=== PATIENT | female | born 1990 | race Caucasian/White ===

== ENCOUNTER 2020-11-25 20:04 | Emergency (ER) | payer BC ==
[2020-11-25] MEDS: Ondansetron 4 MG Tab.DIS PO ONE (20:30)
[2020-11-25 20:45] LABS: CHLORIDE,CL 105 mmol/L (98-107); SODIUM,NA 142 mmol/L (136-145)
[2020-11-25 21:13] VITALS: BP 129/83; PULSE 86
--- NOTE | 2020-11-25 22:25 | EDM.PDOC ---
ED HPI GENERAL MEDICAL PROBLEM - General Chief Complaint: General Stated Complaint: DIZZINESS Time Seen by Provider: 11/25/20 20:30 Source of Information: Reports: Patient History Limitations: Reports: No Limitations - History of Present Illness INITIAL COMMENTS - FREE TEXT/NARRATIVE: Pt. presents to ER with complaints of acute vertigo that resolved prior to arrival to ER. pt. states that this happened once before, shortly after some water was shot into her ear. Pt. reports that she became quite nauseous and vomited once. Pt. denies any chest pain or shortness of breath. No lightheadedness. Denies any palpitations. She states that she has not been experiencing any headache. She has not been confused. states that she has been alert and oriented. She states that she has only vomited once. Onset: Today Onset Date: 11/25/20 Location: Reports: Generalized - Related Data Allergies Allergy/AdvReac Type Severity Reaction Status Date / Time No Known Allergies Allergy Verified 02/25/16 21:05 Home Meds: Home Meds Ibuprofen 600 mg PO Q6HR PRN 02/25/16 [History] Vit37/Iron/Folic Acid [[place]] 1 tab PO DAILY 02/25/16 [History] Past Medical History Cardiovascular History: Reports: Other (See Below) Other Cardiovascular History: varicose veins, takes low dose daily aspirin [employer] History: Reports: Ectopic , , Other (See Below) Other [employer] TE[employer]ER History: ; removal of one fallopian tube post ectopic - Past Surgical History Cardiovascular Surgical History: Reports: None Social & Family History - Tobacco Use Tobacco Use Status *Q: Never Tobacco User Second Hand Smoke Exposure: No - Caffeine Use Caffeine Use: Reports: None - Recreational Drug Use Recreational Drug Use: No ED ROS GENERAL - Review of Systems Review Of Systems: See Below Constitutional: Reports: No Symptoms HEENT: Reports: No Symptoms, Other (L ear fullness/buzzing-resolved) Respiratory: Reports: No Symptoms Cardiovascular: Reports: No Symptoms Endocrine: Reports: No Symptoms GI/Abdominal: Reports: No Symptoms : Reports: No Symptoms Musculoskeletal: Reports: No Symptoms Skin: Reports: No Symptoms Neurological: Reports: Dizziness Psychiatric: Reports: No Symptoms Hematologic/Lymphatic: Reports: No Symptoms Immunologic: Reports: No Symptoms ED EXAM, GENERAL - Physical Exam Exam: See Below Exam Limited By: No Limitations General Appearance: Alert, WD/WN, No Apparent Distress Eye Exam: Bilateral Eye: EOMI, Normal Fundi, Normal Inspection, PERRL Ears: Normal External Exam, Normal Canal, Hearing Grossly Normal, Normal TMs Nose: Normal Inspection, Normal Mucosa, No Blood Throat/Mouth: Normal Inspection, Normal Lips, Normal Teeth, Normal Gums, Normal Oropharynx, Normal Voice, No Airway Compromise Head: Atraumatic, Normocephalic Neck: Normal Inspection, Supple, Non-Tender, Full Range of Motion Respiratory/Chest: No Respiratory Distress, Lungs Clear, Normal Breath Sounds, No Accessory Muscle Use, Chest Non-Tender Cardiovascular: Normal Peripheral Pulses, Regular Rate, Rhythm, No Edema, No Gallop, No JVD, No Murmur, No Rub Peripheral Pulses: 4+: Radial (L) GI/Abdominal: Soft, Non-Tender, No Distention, No Mass Neurological: Alert, Oriented, CN II-XII Intact, Normal Cognition, Normal Gait, Normal Reflexes, No Motor/Sensory Deficits Psychiatric: Normal Affect, Normal Mood Skin Exam: Warm, Dry, Intact, Normal Color, No Rash Course - Vital Signs Last Recorded V/S: Last Vital Signs Temp 37.0 C 11/25/20 20:30 Pulse 86 11/25/20 20:30 Resp 14 11/25/20 20:30 BP 129/83 11/25/20 20:30 Pulse Ox 100 11/25/20 20:30 - Orders/Labs/Meds Orders: Active Orders 24 hr Category Date Time Status Head wo Cont [CT] Stat Exams 11/25/20 20:13 Ordered Labs: Laboratory Tests 11/25/20 11/25/20 Range/Units 20:25 20:25 WBC 6.8 (4.0-10.2) K/uL RBC 4.27 (3.77-5.09) M/uL Hgb 12.8 D (11.7-15.5) g/dL Hct 38.3 (34.0-46.0) % MCV 89.7 D (84.0-98.0) fL MCH 30.0 (28.2-33.3) pg MCHC 33.4 (31.7-36.0) g/dL RDW 12.6 (11.2-14.1) % Plt Count 214 (150-350) K/uL Neut % (Auto) 53.1 (45.0-80.0) % Lymph % (Auto) 33.1 (10.0-50.0) % [place] % (Auto) 11.0 (2.0-14.0) % Eos % (Auto) 2.5 (0.0-5.0) % Baso % (Auto) 0.3 (0.0-2.0) % Neut # (Auto) 3.60 (1.40-7.00) K/uL Lymph # (Auto) 2.25 (0.50-3.50) K/uL [place] # (Auto) 0.75 (0.00-1.00) K/uL Eos # (Auto) 0.17 (0.00-0.50) K/uL Baso # (Auto) 0.02 (0.00-0.20) K/uL Sodium 142 (136-145) mmol/L Potassium 3.7 (3.5-5.1) mmol/L Chloride 105 (98-107) mmol/L Carbon Dioxide 26.9 (21.0-32.0) mmol/L BUN 14 (7-18) mg/dL Creatinine 0.86 (0.51-1.17) mg/dL Est Cr Clr Drug Dosing TNP Estimated GFR (MDRD) > 60 mL/min Glucose 101 H (70-99) mg/dL Calcium 8.5 (8.5-10.1) mg/dL Total Bilirubin 0.2 (0.2-1.0) mg/dL AST 16 (15-37) U/L ALT 29 (12-78) U/L Alkaline Phosphatase 53 (46-116) IU/L Total Protein 7.7 (6.4-8.2) g/dL Albumin 3.9 (3.4-5.0) g/dL Meds: Medications Discontinued Medications Generic Name Dose Route Start Last Admin Trade Name Freq PRN Reason Stop Dose Admin Ondansetron HCl 4 mg 11/25/20 20:13 Ondansetron 4 Mg Tab.Dis PO 11/25/20 20:14 ONETIME ONE - Radiology Interpretation Free Text/Narrative:: CT brain negative for acute pathology Departure - Departure Time of Disposition: 21:00 Disposition: Home, Self-Care 01 Clinical Impression: Vertigo - Discharge Information Instructions: Vertigo, [id number] Forms: ED Department Discharge Additional Instructions: Return to ER if the symptoms start again and don't go away, or follow-up in the clinic. Drink plenty of fluids. Return to ER if you have any chest pain, shortness of breath, or lightheadedness. Sepsis Event Note (ED) - Evaluation Sepsis Screening Result: No Definite Risk - Focused Exam Vital Signs: Vital Signs Temp Pulse Resp BP Pulse Ox 11/25/20 20:30 37.0 C 86 14 129/83 100 - Problem List Review Problem List Initiated/Reviewed/Updated: Yes - My Orders Last 24 Hours: My Active Orders 11/25/20 20:13 Head wo Cont [CT] Stat - Assessment/Plan Last 24 Hours: My Active Orders 11/25/20 20:13 Head wo Cont [CT] Stat Plan: Return to ER if the symptoms start again and don't go away, or follow-up in the clinic. Drink plenty of fluids. Return to ER if you have any chest pain, shortness of breath, or lightheadedness.
== END 2020-11-25 21:27 | disposition home or self-care (01) ==
LOC: LL.ED 20:04
DX: R42 Dizziness and giddiness (principal)
CPT/HCPCS: 36415; 70450; 80053; 85025; 99283; 99284-25